=== PATIENT | female | born 1950 | race Hispanic/Latino ===

== ENCOUNTER 2016-09-28 08:30 | Outpatient (CLI) | payer MEDICARE, OTHER ==
[2016-09-28 12:36] LABS: #Basophils 0.1 thou/uL (0.0-0.2); #Eosinphils 0.3 thou/uL (0.0-0.7); #Lymphocytes 3.1 thou/uL (1.20-3.40); #Monocytes 0.4 thou/uL (0.11-0.59); #Neutrophils 4.4 thou/uL (1.40-6.50); %Eosinophils 3.8 % (0.0-10.0); %Lymphocytes 37.2 % (21.0-51.0); %Monocytes 5.1 % (0.0-10.0); %Neutrophils 52.9 % (42.0-75.0); Hemoglobin 13.9 g/dL (12.0-16.0); Mean Corpuscular HGB CONC 32.6 g/dL (32.0-36.0); Mean Platelet Volume 9.2 fL (7.4-10.4); Platelet Count 234 thou/uL (130-400); RBC Distribution Width 12.6 % (11.5-14.5); Red Blood Cell (RBC) Count 4.78 mill/uL (4.20-5.40); White Blood Cell (WBC) Count 8.3 thou/uL (4.8-10.8)
[2016-09-28 12:42] LABS: Bilirubin Negative (Negative); Blood, Urine Negative (Negative); Clarity Clear (Clear); Glucose, Urine (Dipstick) Negative (Negative); Leukocyte Negative (Negative); Nitrite Negative (Negative); Protein, Urine (Dipstick) Negative (Neg-Trace); Specific Gravity, Urine 1.015 (1.005-1.030); Urobilinogen 0.2 mg/dL (0.2-1.0); pH, Urine 5.5 (5.0-9.0)
[2016-09-28 13:01] LABS: ALT (SGPT) 27 U/L (0-55); AST (SGOT) 23 U/L (5-34); Alkaline Phosphatase 173 U/L (40-150); Anion Gap 15 mmol/L (10-20); BUN (Urea Nitrogen) 15 mg/dL (9.8-20.1); Bilirubin, Total 0.4 mg/dL (0.2-1.2); Calc. Creatinine Clearance 0 mL/min (70-130); Calcium 8.8 mg/dL (7.8-10.44); Carbon Dioxide 19 mmol/L (23-31); Cardiac Risk 5.5 (Less than 4.5); Chloride 106 mmol/L (98-107); Cholesterol 224 mg/dL (< 200 Desired); Estimated GFR-MDRD 68; Globulin 3.1 g/dL (2.4-3.5); Glucose 132 mg/dL (80-115); HDL Cholesterol 41 mg/dL (>60 Neg Risk); LDL Cholesterol, Calculated 113 mg/dL; Potassium 4.1 mmol/L (3.5-5.1); Protein, Total 7.1 g/dL (5.8-8.1); Sodium 136 mmol/L (136-145); Triglycerides 348 mg/dL (Less than 150)
[2016-09-28 18:41] LABS: Microalbumin Urine 2.1 mg/dL (0.5-50.0)
== END 2016-09-28 08:31 | disposition home or self-care (01) ==
LOC: NAVSJIPCSP 08:30
PROVIDERS: ATTEND Internal Medicine
DX: E78.5 Hyperlipidemia, unspecified (principal); E11.29 Type 2 diabetes mellitus with other diabetic kidney complication; Z79.899 Other long term (current) drug therapy
CPT/HCPCS: 36415; 80053; 80061; 81003; 82043; 82274; 83036; 85025

== ENCOUNTER 2016-12-16 08:54 | Outpatient (CLI) | payer MEDICARE, OTHER ==
[2016-12-16 12:33] LABS: Hemoglobin A1c 6.8 % (4.0-6.0)
[2016-12-16 12:56] LABS: Cardiac Risk 5.3 (Less than 4.5)
== END 2016-12-16 08:55 | disposition home or self-care (01) ==
LOC: NAVSJIPCSP 08:54
PROVIDERS: ATTEND Internal Medicine
DX: E11.29 Type 2 diabetes mellitus with other diabetic kidney complication (principal); E78.5 Hyperlipidemia, unspecified
CPT/HCPCS: 36415; 80061; 83036

== ENCOUNTER 2017-03-25 08:52 | Outpatient (CLI) | payer MEDICARE, OTHER ==
[2017-03-25 12:35] LABS: Hemoglobin A1c 7.2 % (4.0-6.0)
[2017-03-25 13:10] LABS: Cardiac Risk 4.3 (Less than 4.5)
== END 2017-03-25 08:53 | disposition home or self-care (01) ==
LOC: NAVSJIPCSP 08:52
PROVIDERS: ATTEND Internal Medicine
DX: E11.29 Type 2 diabetes mellitus with other diabetic kidney complication (principal); E78.5 Hyperlipidemia, unspecified; Z79.899 Other long term (current) drug therapy
CPT/HCPCS: 36415; 80061; 83036